=== PATIENT | female | born 1975 | race Caucasian/White ===

== ENCOUNTER → 2016-10-22 | Day surgery (SDC) | payer OTHER ==
[~2016-10-22] VITALS: Ht 152.4 cm; Wt 97.5 kg
[~2016-10-22] MED LIST: *ONDANSETRON 4 MG VIAL PERIprocedural Use ONLY ONE; ACETAMINOPHEN/HYDROcodone 325 MG/5 MG TAB PO PRN; ARIP1TAB13; ARIP1TAB5 PO; ARMO120T PO; CHLORHEXIDINE GLUCONATE 2 % 1 PACK (2 CLOTHS) TOPICAL PRN; CHLORHEXIDINE GLUCONATE 4% SOLN 120 ML BTL TOPICAL SCH; DIVA250ER PO; DO NOT ADM ANY ANTICOAGULANT DRUGS PRN; FAMOTIDINE 20 MG/2 ML VIAL ONE; FLUO40CA PO; GENTAMICIN SULFATE 80 MG/2 ML VIAL ONE; HYDR-3516 PO; HYDR10TA65 PO; HYDR5TAB64 PO; INSULIN HUMAN REGULAR 1,000 UNITS/10 ML VIAL SQ PRN; LACTATED RINGER'S 1000 ML INJ 1,000 ML IV ONE; LACTATED RINGER'S 1000 ML INJ 1,000 ML IV SCH; LACTATED RINGER'S 1000 ML INJ 1,000 ML ONE; LACTATED RINGER'S 1000 ML IV PRN; LEVO.15 PO; LEXA20TA PO; LIOT5 PO; MEDR4PAK3 PO; METOPROLOL TARTRATE 25 MG TAB PO PRN; MIDAZOLAM HCL 2 MG/2 ML VIAL ONE; MORPHINE SULFATE 4 MG/ML INJ IV PUSH PRN; NEOSTIGMINE 3 MG/3 ML SYR IV ONE; ONDANSETRON HCL 4 MG/2 ML VIAL IV PRN; ONDANSETRON HCL 4 MG/2 ML VIAL IV PUSH ONE; POVIDONE IODINE 5% (ANTISEPSIS KIT) 4 APPLICATIONS EACH NARE PRN; PROPOFOL 200 MG/20 ML AMP IV ONE; SODIUM CHLOR 0.9% 250 ML INJ 250 ML ONE; SODIUM CHLORID 0.9% 500 ML IV PRN; SODIUM CHLORIDE 0.9% FLUSH 5 ML FLUSH IVF PRN; SODIUM CHLORIDE 0.9% FLUSH 5 ML FLUSH IVF SCH; VANCOMYCIN 1000 MG/NS 250 ML (for <70 kg) IV SCH; VANCOMYCIN HCL 1000 MG VIAL ONE; ZOFR8TAB PO; ceFAZolin 2 GM PREMIX 50 ML IV SCH; ceFAZolin 2 GM PREMIX 50 ML ONE; fentaNYL CITRATE 250 MCG/5 ML AMP ONE
[2016-10-22 09:07] VITALS: BP 138/67; PULSE 100; RESP 18; TEMP 98.2; O2SAT 96
--- NOTE | 2016-10-22 11:34 | MH ---
cc: SHERRY,LAURIE DATE OF ADMISSION: 10/22/2016 DATE OF : 1975 DIAGNOSIS Fracture lateral malleolus with disruption of the deltoid ligament and the distal tibiofibular syndesmosis. Date of injury 10/16/2016. PRESENT HISTORY She twisted her ankle on the stairs at home resulting in this injury for which she was seen at [facility] where they evaluated her, x-rayed her, put her in an Jc bandages and gave her crutches. She saw me yesterday in the office and it was noted that she had widening of the medial joint space on the x-rays from [facility]. I discussed the x-rays which confirmed disruption of the deltoid ligament. There is probably also some disruption of the syndesmosis. The patient therefore is brought in for open reduction and internal fixation of fracture of the distal fibula and fixation of the syndesmosis with screw and/or Tightrope. The diagnosis, the treatment, the prognosis and the potential risks, hazards, complications, expected results, postoperative course, especially non-weightbearing for as long as 8 weeks have all been discussed with them in detail. Informed consent obtained. PERSONAL/SOCIAL HISTORY She does not smoke or drink. She is a homemaker. She has three boys. PAST MEDICAL HISTORY 1. Thyroid deficiency. 2. Nonspecific adrenal insufficiency on daily steroids p.o. 3. Anxiety. 4. Depression. 5. Asthma. 6. Low back pain. PAST SURGICAL HISTORY Three C-sections. MEDICATIONS Current medications: 1. Synthroid. 2. Hydrocortisone b.i.d. 3. Depakote. 4. Abilify. 5. Lexapro. ALLERGIES 1. ZOLOFT. 2. LAMICTAL. PHYSICAL EXAMINATION Physical examination reveals a white female who has a BMI of 47, 5 feet tall, 250 pounds. She is in a wheelchair but she is trying to use a walker. She has an Jc bandage on the right ankle with moderate swelling of the ankle. Pedal pulses are palpable and she moves her toes well. HEENT: Head is normocephalic. Pupils are central, equal and react to light. NECK: No masses palpable. HEART: Regular rhythm. No murmurs. LUNGS: Clear to auscultation. ABDOMEN: Soft and supple. IMAGING X-rays are as described before. PROCEDURE As described before. POST-OP COURSE Probable nerve block, etc. were discussed. MD GEMMA Mina/FREDDY /11:17 AM /11:22 AM
[2016-10-22 12:06] LABS: AUTOMATED NEUTROPHIL # 8.3 TH/MM3 (1.8-7.7); BASOPHIL # 0.1 TH/MM3 (0-0.2); BASOPHIL % 0.5 % (0.0-2.0); EOSINOPHIL % 0.4 % (0.0-4.0); HEMO FLAGS DIFF FINAL; LYMPH % 17.3 % (9.0-44.0); LYMPHOCYTE # 1.9 TH/MM3 (1.0-4.8); MEAN CELL VOLUME 84.8 FL (80.0-100.0); MEAN CORPUSCULAR HEMOGLOBIN 27.4 PG (27.0-34.0); MEAN CORPUSCULAR HGB CONC 32.3 % (32.0-36.0); NEUT % 75.8 % (16.0-70.0); PLATELET COUNT 316 TH/MM3 (150-450); WHITE BLOOD COUNT 10.9 TH/MM3 (4.0-11.0)
[2016-10-22 12:28] LABS: BICARBONATE 26.4 MEQ/L (21.0-32.0)
--- NOTE | 2016-10-22 15:22 | MP ---
cc: LAURIE ARTEAGA DATE OF SURGERY 10/22/2016 PREOPERATIVE DIAGNOSIS Fracture right distal fibula with disruption of the deltoid ligament and distal tibiofibular syndesmosis. POSTOPERATIVE DIAGNOSIS Fracture right distal fibula with disruption of the deltoid ligament and distal tibiofibular syndesmosis. OPERATIVE PROCEDURE 1. Open reduction, internal fixation fracture right fibula. 2. Open reduction, internal fixation of distal tibiofibular syndesmosis. SURGEON Dr. Arteaga ANESTHESIA General. TECHNIQUE After induction of general anesthesia the right lower extremity prepped with alcohol and ChloraPrep and draped in routine fashion. Ioban drape was applied over the skin laterally where a 10-12 cm long incision made along the border of the fibula deepened through subcutaneous tissue, distally down to bone getting hemostasis at the same time. Proximal incision was carefully carried out to identify the superficial peroneal nerve which indeed was right there in the proximal portion of the incision under the fascia and this was protected throughout the procedure. Limited subperiosteal dissection of the fibula was carried out. The fracture of the fibula was reduced and held temporarily with two smooth pins followed by fixation of this with a contoured Synthes lateral fibular plate with three proximal bicortical screws and five distal locking screws. A syndesmotic screw was placed using cortical 4.0 screw with over drilling of the lateral cortex getting good compression under fluoroscopic imaging and good closure of the medial joint space. An additional tight ___ was placed through the more proximal oblong hole and once again tightened. The wound was irrigated with saline solution. Final fluoroscopic images showed good reduction and alignment of the joint. Final images saved for record keeping. Wound was irrigated with saline solution followed by closure of the skin and subcutaneous tissue with a single layer of interrupted vertical mattress 3-0 nylon sutures. Dressing applied with Xeroform, 4x4s, ABD, Sof-Rol and the leg immobilized in a posterior fiberglass splint secured with Edin and Jc bandage. The patient transferred to the recovery room in satisfactory condition where she will receive a nerve block for pain control. The patient tolerated the procedure well. TRANSFUSIONS/COMPLICATIONS None. POSTOPERATIVE CONDITION Satisfactory. PROGNOSIS Guarded to good. MD GEMMA Mina/TAYA /2:33 PM /3:11 PM
--- NOTE | 2016-10-22 15:32 | RADRPT ---
EXAM DATE/TIME: 10/22/2016 12:24 [place] COMPARISON: No previous studies available for comparison. INDICATIONS : ORIF right ankle fracture. MEDICAL HISTORY : Unobtainable. SURGICAL HISTORY : Unobtainable. ENCOUNTER: Initial ACUITY: 1 day PAIN SCORE: Non-responsive. LOCATION: Right ankle FINDINGS: For magnified C-arm spot views are centered over the ankle and labeled right. There is a distal fibul ar fracture with lateral cortical margin orthopedic plate and multiple anchoring screws with good ali gnment. CONCLUSION: Limited images as detailed above. Akira Murrieta Jr., MD on October 22, 2016 at 15:30 Board Certified Radiologist. This report was verified electronically.
[2016-10-22 16:20] VITALS: BP 142/67; PULSE 103; RESP 20; TEMP 98; O2SAT 98
== END | disposition home or self-care (01) ==
LOC: HSDC 08:11
PROVIDERS: ATTEND Orthopaedic Surgery
DX: S82.61XA Displaced fracture of lateral malleolus of right fibula, initial encounter for closed fracture (principal); S93.431A Sprain of tibiofibular ligament of right ankle, initial encounter; X50.1XXA Overexertion from prolonged static or awkward postures, initial encounter; Y92.019 Unspecified place in single-family (private) house as the place of occurrence of the external cause; E03.8 Other specified hypothyroidism; E27.40 Unspecified adrenocortical insufficiency; J45.909 Unspecified asthma, uncomplicated; M54.5 Low back pain; Z79.52 Long term (current) use of systemic steroids
CPT/HCPCS: 01480; 27792; 27829; 73600; 76000; 80048; 85025; C1713; J0690; J1580; J2250; J2270; J2405; J2710; J3010; J3370; J7050; J7120